=== PATIENT | female | born 1985 | race Caucasian/White ===

== ENCOUNTER 2023-03-09 22:42 | Emergency (ER) | payer MEDICAID ==
[~2023-03-09] VITALS: Ht 165.1 cm; Wt 68.0 kg
[2023-03-09 23:31] VITALS: BP 114/74; TEMP 98.6; O2SAT 98
[2023-03-09] MEDS ORDERED: CEPH500T PO (23:34)
[2023-03-09] MEDS ORDERED: HYDR28.32 TP (23:34)
== END 2023-03-09 23:38 | disposition home or self-care (01) ==
LOC: ER 22:46
DX: S71.131A Puncture wound without foreign body, right thigh, initial encounter (principal); F17.200 Nicotine dependence, unspecified, uncomplicated; W57.XXXA Bitten or stung by nonvenomous insect and other nonvenomous arthropods, initial encounter; Y93.89 Activity, other specified; Y92.89 Other specified places as the place of occurrence of the external cause; Y99.8 Other external cause status